=== PATIENT | male | born 1980 | race Caucasian/White ===

== ENCOUNTER 2022-10-12 14:30 | Emergency (ER) | payer MEDICAID ==
[~2022-10-12] VITALS: Ht 180.3 cm; Wt 70.0 kg
[2022-10-12 15:12] VITALS: BP 160/96
[2022-10-12] MEDS ORDERED: IBUP-1986 PO (16:53)
[2022-10-12] MEDS ORDERED: AZIT-21 PO (16:53)
[2022-10-12] MEDS ORDERED: azithromycin 250mg tablet PO ONE (16:55)
[2022-10-12] MEDS ORDERED: ketorolac trometh inj. 60 MG/2 ML VIAL IM ONE (16:55)
== END 2022-10-12 17:36 | disposition home or self-care (01) ==
LOC: ER 14:32
DX: H60.91 Unspecified otitis externa, right ear (principal); H72.93 Unspecified perforation of tympanic membrane, bilateral; F17.200 Nicotine dependence, unspecified, uncomplicated; Z88.0 Allergy status to penicillin
CPT/HCPCS: 96372; 99283; J1885

== ENCOUNTER 2023-06-01 15:23 | Emergency (ER) | payer MEDICAID, OTHER ==
[~2023-06-01] VITALS: Ht 180.3 cm; Wt 67.2 kg
[~2023-06-01 15:23] MED LIST: IBUP-1986 PO
[2023-06-01 15:51] VITALS: BP 134/82
[2023-06-01] MEDS ORDERED: FLUO20DR4 RIGHT EAR (16:52)
[2023-06-01] MEDS ORDERED: CIPR-259 PO (16:52)
== END 2023-06-01 17:02 | disposition home or self-care (01) ==
LOC: ER 15:23
DX: H60.8X1 Other otitis externa, right ear (principal); Z88.0 Allergy status to penicillin; Z79.899 Other long term (current) drug therapy
CPT/HCPCS: 99283